=== PATIENT | male | born 1940 | race Caucasian/White ===

== ENCOUNTER 2019-01-23 18:42 | Emergency (ER) | payer MEDICARE, OTHER ==
[2019-01-23] MEDS ORDERED: SODIUM CHLORIDE FLUSH 10ML SYR IVF ONE ×2 (19:00→19:30)
--- NOTE | 2019-01-23 19:00 | NUR ---
MD AT BEDSIDE TO ASSESS PT
[2019-01-23] MEDS ORDERED: PROPOFOL 10 MG/ML, 20ML ONE (19:26)
[2019-01-23] MEDS ORDERED: PROPOFOL 10 MG/ML, 20ML IV ONE (19:30)
[2019-01-23 19:40] LABS: MEAN CORPUSCULAR HEMOGLOBIN 31.8 pg (27.5-34.5); MEAN CORPUSCULAR HGB CONC 33.4 g/dL (33.2-36.2); MEAN CORPUSCULAR VOLUME 95.3 fL (81-97); MEAN PLATELET VOLUME 9.2 fL (7.4-10.4); PLATELET COUNT 239 x10^3/uL (130-400); RED BLOOD COUNT 4.73 x10^6/uL (4.38-5.82); RED CELL DISTRIBUTION WIDTH 14.9 % (9.4-14.8)
[2019-01-23 19:46] LABS: ALBUMIN 3.9 g/dL (3.4-5.0); ANION GAP 7 mmol/L (5-15); CALCIUM 8.9 mg/dL (8.5-10.1); CHLORIDE 111 mmol/L (98-107); CREATININE 0.98 mg/dL (0.7-1.3)
[2019-01-23 20:10] LABS: INTERNATIONAL NORMALIZED RATIO 1.03 (0.93-1.1); PROTHROMBIN TIME 10.8 Seconds (9.6-11.5)
[2019-01-23 20:11] LABS: MD YES
[2019-01-23 20:23] LABS: BAND#(MANUAL) 0.68 x10^3/uL; BANDS%(MANUAL) 5 % (0-7); EOS#(MANUAL) 0.27 x10^3/uL (0.0-0.4); EOS% (MANUAL) 2 % (1-7); LYMPH#(MANUAL) 1.22 x10^3/uL (1-3.4); LYMPHS% (MANUAL) 9 % (22-44); MONOS#(MANUAL) 1.08 x10^3/uL (0.3-2.7); MONOS% (MANUAL) 8 % (2-9); REACTIVE LYMPHS # (MANUAL) 0.41 x10^3/uL (0-0); REACTIVE LYMPHS % (MANUAL) 3 % (0-0); SEG#(MANUAL) 9.86 x10^3/uL (1.8-6.8); SEGS% (MANUAL) 73 % (42-75)
--- NOTE | 2019-01-23 20:23 | NUR ---
ERP AT BEDSIDE FOR SUCCESSFUL REDUCTION OF R ANKLE. TECH AT BEDSIDE FOR SPLINT. POST REDUCTION XRAY COMPLETED AT THIS TIME.
[2019-01-23 20:24] LABS: <PLATELET ESTIMATE> ADEQUATE; <PLT MORPHOLOGY> NORMAL PLT MORPH; <RBC MORPHOLOGY> NORMAL
[2019-01-23 20:58] VITALS: BP 147/74
== END 2019-01-23 21:02 | disposition home or self-care (01) ==
LOC: ED 20:45
DX: S82.851A Displaced trimalleolar fracture of right lower leg, initial encounter for closed fracture (principal); I10 Essential (primary) hypertension; W17.89XA Other fall from one level to another, initial encounter; Y93.89 Activity, other specified; Y92.828 Other wilderness area as the place of occurrence of the external cause; Y99.8 Other external cause status
CPT/HCPCS: 27840; 36415; 71045; 80048; 82040; 85025; 85610; 93005; 99152; 99285

== ENCOUNTER 2019-02-02 15:39 | Day surgery (SDC) | payer MEDICARE ==
[~2019-02-02] VITALS: Ht 182.9 cm; Wt 93.1 kg
[2019-02-02] MEDS ORDERED: NEOM10SO7 EACH EAR (15:43)
[2019-02-02] MEDS ORDERED: CARV-39 PO (15:43)
[2019-02-02] MEDS ORDERED: ASPI-515 PO (15:43)
[2019-02-02] MEDS ORDERED: ENAL20TA PO (15:43)
[2019-02-02] MEDS ORDERED: FINA5TAB4 PO (15:43)
[2019-02-02] MEDS ORDERED: HYDR25TA6 PO (15:43)
[2019-02-02] MEDS ORDERED: FLUT16SP24 NAS (15:43)
[2019-02-02] MEDS ORDERED: OMEP-110 PO (15:43)
[2019-02-02] MEDS ORDERED: LACTATED RINGERS 1,000 ML IV ONE (15:46)
[2019-02-02 16:09] VITALS: BP 124/78
[2019-02-02] MEDS ORDERED: FENTANYL PF 100 MCG/2ML ONE ×2 (18:10→19:56)
[2019-02-02] MEDS ORDERED: FENTANYL PF 250 MCG/5ML ONE (18:21)
[2019-02-02] MEDS ORDERED: ALBUTEROL SULFATE 2.5 MG/3 ML NPPB PRN (19:00)
[2019-02-02] MEDS ORDERED: LABETALOL 5MG/ML, 20ML IV PRN (19:00)
[2019-02-02] MEDS ORDERED: hydrALAzine 20 MG/ML, 1ML IV PRN (19:00)
[2019-02-02] MEDS ORDERED: PROMETHAZINE 25 MG/ML, 1ML IV PRN (19:00)
[2019-02-02] MEDS ORDERED: ACETAMINOPHEN 325 MG TABLET PO PRN (19:00)
[2019-02-02] MEDS ORDERED: OXYcodone 5 MG/5 ML ORAL.SOL UDC PO PRN (19:00)
[2019-02-02] MEDS ORDERED: MEPERIDINE/PF 25MG/0.5ML IVPush PRN (19:00)
[2019-02-02] MEDS ORDERED: DIAZEPAM 5 MG/ML, 2ML IVPush PRN (19:00)
[2019-02-02] MEDS ORDERED: HYDROmorphone 2 MG/ML, 1ML IVPush PRN (19:00)
[2019-02-02] MEDS ORDERED: KETOROLAC 30 MG/1 ML IV PRN (19:00)
[2019-02-02] MEDS ORDERED: FENTANYL PF 100 MCG/2ML IV PRN (19:00)
[2019-02-02] MEDS ORDERED: ONDANSETRON 2MG/ML, 2ML ONE (19:54)
[2019-02-02] MEDS ORDERED: SUCCINYLCHOLINE 20 MG/ML, 10ML ONE (19:54)
[2019-02-02] MEDS ORDERED: CEFAZOLIN 1,000 MG ONE (19:54)
[2019-02-02] MEDS ORDERED: DEXAMETHASONE 4 MG/ML, 1ML ONE (19:54)
[2019-02-02] MEDS ORDERED: ROCURONIUM 10MG/ML,5ML ONE (19:54)
[2019-02-02] MEDS ORDERED: PROPOFOL 10 MG/ML, 20ML ONE (19:54)
[2019-02-02] MEDS ORDERED: GLYCOPYRROLATE 0.2MG/1ML, 5ML ONE (19:54)
[2019-02-02] MEDS ORDERED: NEOSTIGMINE 1 MG/ML, 10ML ONE (19:54)
[2019-02-02] MEDS ORDERED: ACETAMINOPHEN 650 MG/20.3 ML UDC ONE (21:03)
[2019-02-02] MEDS ORDERED: KETOROLAC 30 MG/1 ML ONE (21:03)
== END 2019-02-02 23:10 | disposition home or self-care (01) ==
LOC: OR 15:39
PROVIDERS: ATTEND Orthopaedic Surgery
DX: S82.851A Displaced trimalleolar fracture of right lower leg, initial encounter for closed fracture (principal); I10 Essential (primary) hypertension; K21.9 Gastro-esophageal reflux disease without esophagitis; M19.90 Unspecified osteoarthritis, unspecified site; Z79.899 Other long term (current) drug therapy; Z79.82 Long term (current) use of aspirin; Z88.0 Allergy status to penicillin; W18.39XA Other fall on same level, initial encounter; Y93.89 Activity, other specified; Y92.89 Other specified places as the place of occurrence of the external cause; Y99.8 Other external cause status
CPT/HCPCS: 27823; 64445; 64447; 73610; C1713; C1769; J0330; J0690; J1100; J1885; J2405; J2704; J3010; J7120; 76000; J2710

== ENCOUNTER 2019-03-23 09:19 | Day surgery (SDC) | payer MEDICARE ==
[~2019-03-23] VITALS: Ht 182.9 cm; Wt 83.2 kg
[~2019-03-23 09:19] MED LIST: ASPI-515 PO; CARV-39 PO; ENAL20TA PO; FINA5TAB4 PO; FLUT16SP24 NAS; HYDR25TA6 PO; NEOM10SO7 EACH EAR; OMEP-110 PO
[2019-03-23] MEDS ORDERED: LACTATED RINGERS 1,000 ML IV SCH (10:04)
[2019-03-23 10:21] VITALS: BP 123/83
[2019-03-23] MEDS ORDERED: PLEASE ENTER HEIGHT AND WEIGHT MC SCH (10:30)
[2019-03-23] MEDS ORDERED: MIDAZOLAM 1 MG/ML, 2ML ONE (10:54)
[2019-03-23] MEDS ORDERED: FENTANYL PF 250 MCG/5ML ONE (10:54)
[2019-03-23] MEDS ORDERED: PROPOFOL 10 MG/ML, 20ML ONE (10:56)
[2019-03-23] MEDS ORDERED: DEXAMETHASONE 4 MG/ML, 1ML ONE (10:56)
[2019-03-23] MEDS ORDERED: ONDANSETRON 2MG/ML, 2ML ONE (11:21)
[2019-03-23] MEDS ORDERED: EPHEDRINE 50 MG/ML, 1ML ONE (11:30)
[2019-03-23] MEDS ORDERED: CEFAZOLIN 1,000 MG ONE ×2 (11:32)
[2019-03-23] MEDS ORDERED: VANCOMYCIN 1,000 MG ONE (11:41)
[2019-03-23] MEDS ORDERED: PROMETHAZINE 25 MG/ML, 1ML IV PRN (12:00)
[2019-03-23] MEDS ORDERED: EPHEDRINE 50 MG/ML, 1ML IVPush PRN (12:00)
[2019-03-23] MEDS ORDERED: ONDANSETRON 2MG/ML, 2ML IV PRN (12:00)
[2019-03-23] MEDS ORDERED: MEPERIDINE/PF 25MG/ML,1ML IVPush PRN (12:00)
[2019-03-23] MEDS ORDERED: PROMETHAZINE 12.5 MG SUPP PR PRN (12:00)
[2019-03-23] MEDS ORDERED: HYDROmorphone 2 MG/ML, 1ML IVPush PRN (12:00)
[2019-03-23] MEDS ORDERED: LABETALOL 5MG/ML, 20ML IV PRN (12:00)
[2019-03-23] MEDS ORDERED: DIAZEPAM 5 MG/ML, 2ML IVPush PRN (12:00)
[2019-03-23] MEDS ORDERED: MIDAZOLAM 1 MG/ML, 2ML IV PRN (12:00)
[2019-03-23] MEDS ORDERED: ALBUTEROL SULFATE 2.5 MG/3 ML NPPB PRN (12:00)
[2019-03-23] MEDS ORDERED: OXYcodone 5 MG/5 ML ORAL.SOL UDC PO PRN (12:00)
[2019-03-23] MEDS ORDERED: HALOPERIDOL 5 MG/ML IV PRN (12:00)
[2019-03-23] MEDS ORDERED: FENTANYL PF 100 MCG/2ML IV PRN (12:00)
[2019-03-23] MEDS ORDERED: ONDANSETRON ODT 8 MG PO PRN (12:00)
[2019-03-23] MEDS ORDERED: hydrALAzine 20 MG/ML, 1ML IV PRN (12:00)
[2019-03-23] MEDS ORDERED: OXYcodone 5 MG/5 ML ORAL.SOL UDC ONE (12:35)
[2019-03-23] MEDS ORDERED: ACETAMINOPHEN 650 MG/20.3 ML UDC ONE (12:35)
[2019-03-23] MEDS ORDERED: FENTANYL PF 100 MCG/2ML ONE (12:35)
[2019-03-23] MEDS ORDERED: ACETAMINOPHEN 650 MG/20.3 ML UDC PO PRN (13:00)
== END 2019-03-23 15:15 | disposition home or self-care (01) ==
LOC: OUT 09:19
PROVIDERS: ATTEND Orthopaedic Surgery
DX: T81.89XA Other complications of procedures, not elsewhere classified, initial encounter (principal); I10 Essential (primary) hypertension; F15.90 Other stimulant use, unspecified, uncomplicated; Z72.89 Other problems related to lifestyle; Y83.8 Other surgical procedures as the cause of abnormal reaction of the patient, or of later complication, without mention of misadventure at the time of the procedure; Y92.89 Other specified places as the place of occurrence of the external cause
CPT/HCPCS: 11043; 87070; 87075; 87205; J0690; J1100; J2250; J2405; J2704; J3010; J3370; J7120

== ENCOUNTER 2019-03-27 08:17 | Outpatient (CLI) | payer MEDICARE ==
[2019-04-18] MEDS ORDERED: ENOX40SY4 SQ (12:34)
== END 2019-03-27 23:59 | disposition home or self-care (01) ==
LOC: WOUND 08:17
PROVIDERS: ATTEND Internal Medicine
DX: T81.89XA Other complications of procedures, not elsewhere classified, initial encounter (principal); I10 Essential (primary) hypertension; Z87.11 Personal history of peptic ulcer disease; Y83.2 Surgical operation with anastomosis, bypass or graft as the cause of abnormal reaction of the patient, or of later complication, without mention of misadventure at the time of the procedure; Y92.89 Other specified places as the place of occurrence of the external cause; Y81.2 Prosthetic and other implants, materials and accessory general- and plastic-surgery devices associated with adverse incidents
CPT/HCPCS: 11042; 97605; G0463

== ENCOUNTER 2019-04-07 09:00 | Outpatient (CLI) | payer MEDICARE | END 2019-04-07 23:59 | disposition home or self-care (01) | LOC: WOUND 09:00 | PROVIDERS: ATTEND Family Medicine | DX: S91.001D Unspecified open wound, right ankle, subsequent encounter (principal); I10 Essential (primary) hypertension; W33.0 Accidental rifle, shotgun and larger firearm discharge | CPT/HCPCS: 11042; 97605 ==

== ENCOUNTER 2019-04-14 08:44 | Outpatient (CLI) | payer MEDICARE ==
[2019-04-18] MEDS ORDERED: ENOX40SY4 SQ (12:34)
== END 2019-04-14 23:59 | disposition home or self-care (01) ==
LOC: WOUND 08:44
PROVIDERS: ATTEND Family Medicine
DX: S91.001D Unspecified open wound, right ankle, subsequent encounter (principal); L03.115 Cellulitis of right lower limb; I10 Essential (primary) hypertension; F15.90 Other stimulant use, unspecified, uncomplicated; Z88.0 Allergy status to penicillin; Z79.82 Long term (current) use of aspirin; Z87.11 Personal history of peptic ulcer disease; W33.0 Accidental rifle, shotgun and larger firearm discharge
CPT/HCPCS: G0463